=== PATIENT | female | born 1955 | race Asian ===

== ENCOUNTER → 2018-05-18 | Outpatient (CLI) | payer BC ==
[~2018-05-18] MED LIST: REGADENOSON 0.4 MG/5 ML SYRINGE ONE
== END | disposition home or self-care (01) ==
LOC: CFH 13:04
PROVIDERS: ATTEND Internal Medicine Cardiovascular Disease
DX: I48.91 Unspecified atrial fibrillation (principal); I10 Essential (primary) hypertension; E11.9 Type 2 diabetes mellitus without complications
CPT/HCPCS: 78452; 93017; A9502; J2785

== ENCOUNTER 2018-07-24 07:41 | Observation (INO) | payer BC, MEDICARE ==
[~2018-07-24] VITALS: Ht 154.9 cm; Wt 69.3 kg
[2018-07-24] MEDS ORDERED: SODIUM CHLORIDE 0.9% 1,000 ML IV SCH (08:31)
[2018-07-24 08:33] VITALS: BP 126/81
[2018-07-24] MEDS ORDERED: RIVA20TA PO (08:49)
[2018-07-24] MEDS ORDERED: CITA20TA6 PO (08:49)
[2018-07-24] MEDS ORDERED: METF500T17 PO (08:49)
[2018-07-24] MEDS ORDERED: AMIO200T42 PO (08:49)
[2018-07-24 09:53] LABS: BASOPHILS # (AUTO) 0.04 x10^3/uL (0-0.1); BASOPHILS % (AUTO) 1 % (0-1); EOSINOPHILS # (AUTO) 0.18 x10^3/uL (0-0.4); EOSINOPHILS % (AUTO) 3 % (1-7); LYMPHOCYTES # (AUTO) 1.79 x10^3/uL (1-3.4); LYMPHOCYTES % (AUTO) 30 % (22-44); MD NO; MEAN CORPUSCULAR HEMOGLOBIN 28.9 pg (27.0-34.8); MEAN CORPUSCULAR HGB CONC 32.4 g/dL (32.4-35.8); MEAN CORPUSCULAR VOLUME 89.1 fL (80-100); MEAN PLATELET VOLUME 9.5 fL (7.4-10.4); MONOCYTES # (AUTO) 0.58 x10^3/uL (0.2-0.8); MONOCYTES % (AUTO) 10 % (2-9); NEUTROPHILS # (AUTO) 3.44 x10^3/uL (1.8-6.8); NEUTROPHILS % (AUTO) 57 % (42-75); PLATELET COUNT 204 x10^3/uL (130-400); RED BLOOD COUNT 4.55 x10^6/uL (3.82-5.3); RED CELL DISTRIBUTION WIDTH 13.5 % (9.6-15.2)
[2018-07-24 10:05] LABS: ANION GAP 4 mmol/L (5-15); CALCIUM 9.1 mg/dL (8.5-10.1); CHLORIDE 108 mmol/L (98-107)
[2018-07-24] MEDS ORDERED: FENTANYL PF 250 MCG/5ML ONE (10:21)
[2018-07-24] MEDS ORDERED: PROPOFOL 50 ML ONE (10:21)
[2018-07-24] MEDS ORDERED: MIDAZOLAM 1 MG/ML, 2ML ONE (10:21)
[2018-07-24] MEDS ORDERED: ONDANSETRON 2MG/ML, 2ML ONE (10:31)
[2018-07-24] MEDS ORDERED: SUCCINYLCHOLINE 20 MG/ML, 10ML ONE (10:31)
[2018-07-24] MEDS ORDERED: ROCURONIUM 10MG/ML,5ML ONE (10:31)
[2018-07-24] MEDS ORDERED: DEXAMETHASONE 4 MG/ML, 1ML ONE (10:31)
[2018-07-24] MEDS ORDERED: PROTAMINE SULFATE 10 MG/ML, 5ML ONE (11:51)
[2018-07-24] MEDS ORDERED: ACETAMINOPHEN 325 MG TABLET PO PRN ×2 (12:00→12:30)
[2018-07-24] MEDS ORDERED: MORPHINE SULFATE 4 MG/ML, 1ML IVPush PRN (12:30)
[2018-07-24] MEDS ORDERED: ONDANSETRON 2MG/ML, 2ML IV PRN (12:30)
[2018-07-24] MEDS ORDERED: ONDANSETRON ODT 8 MG PO PRN (12:30)
[2018-07-24] MEDS ORDERED: MIDAZOLAM 1 MG/ML, 2ML IV PRN (12:30)
[2018-07-24] MEDS ORDERED: EPHEDRINE 50 MG/ML, 1ML IVPush PRN (12:30)
[2018-07-24] MEDS ORDERED: PROMETHAZINE 25 MG SUPP PR PRN (12:30)
[2018-07-24] MEDS ORDERED: FENTANYL PF 100 MCG/2ML IV PRN (12:30)
[2018-07-24] MEDS ORDERED: PROMETHAZINE 12.5 MG SUPP PR PRN (12:30)
[2018-07-24] MEDS ORDERED: MEPERIDINE/PF 25MG/0.5ML IVPush PRN (12:30)
[2018-07-24] MEDS ORDERED: hydrALAzine 20 MG/ML, 1ML IV PRN (12:30)
[2018-07-24] MEDS ORDERED: METOPROLOL 1 MG/ML, 5ML IV PRN (12:30)
[2018-07-24] MEDS ORDERED: DIPHENHYDRAMINE 50 MG/ML, 1ML IVPush PRN (12:30)
[2018-07-24] MEDS ORDERED: PROMETHAZINE 25 MG/ML, 1ML IV PRN (12:30)
[2018-07-24] MEDS ORDERED: OXYcodone 5 MG/5 ML ORAL.SOL UDC PO PRN (12:30)
[2018-07-24] MEDS: RIVAROXABAN 20 MG TABLET PO SCH (16:15)
[2018-07-24 20:30] VITALS: BP 109/69
[2018-07-24] MEDS: metFORMIN 500 MG TABLET PO SCH (20:44)
[2018-07-25 02:21] VITALS: BP 94/58
[2018-07-25] MEDS ORDERED: ACET325T14 PO (08:29)
[2018-07-25] MEDS ORDERED: CITALOPRAM 20 MG TABLET PO SCH (09:00)
[2018-07-25] MEDS: RIVAROXABAN 20 MG TABLET PO SCH (09:53)
[2018-07-25] MEDS: metFORMIN 500 MG TABLET PO SCH (09:53)
[2018-07-25 09:57] VITALS: BP 108/65
[2018-07-25 13:31] VITALS: BP 122/76
[2018-08-21] MEDS ORDERED: DEXAMETHASONE 4 MG/ML, 1ML ONE (10:31)
[2018-08-21] MEDS ORDERED: SUCCINYLCHOLINE 20 MG/ML, 10ML ONE (10:31)
[2018-08-21] MEDS ORDERED: ROCURONIUM 10MG/ML,5ML ONE (10:31)
[2018-08-21] MEDS ORDERED: ONDANSETRON 2MG/ML, 2ML ONE (10:31)
== END 2018-07-25 15:41 | disposition home or self-care (01) ==
LOC: CACL 07:41 → ORIP 11:53 → 5SO 14:04 → DCLOUNGE 07-25 15:23
PROVIDERS: ADMIT Internal Medicine Cardiovascular Disease; ATTEND Internal Medicine Cardiovascular Disease
DX: I48.91 Unspecified atrial fibrillation (principal); I48.92 Unspecified atrial flutter; I45.9 Conduction disorder, unspecified; I10 Essential (primary) hypertension; E78.5 Hyperlipidemia, unspecified
CPT/HCPCS: 36415; 80048; 85025; 85347; 93613; 93655; 93656; 93662; C1730; C1731; C1732; C1759; C1766; C1893; C1894; G0378; J0330; J1100; J1642; J2250; J2405; J2704; J2720; J3010